=== PATIENT | female | born 1990 | race African-American/Black ===

== ENCOUNTER → 2016-09-06 | Outpatient (CLI) | payer BC, OTHER ==
[~2016-09-06] MED LIST: FERR325T PO; IBUP-232 PO; PREN29TA PO; SENN1TAB PO
== END ==
LOC: HPND 13:50
PROVIDERS: ATTEND Family Medicine
DX: O32.2XX0 Maternal care for transverse and oblique lie, not applicable or unspecified (principal)
CPT/HCPCS: 76816; 76818

== ENCOUNTER → 2016-09-27 | Outpatient (CLI) | payer BC, OTHER | LOC: HPND 14:13 | PROVIDERS: ATTEND Family Medicine | DX: O36.5930 Maternal care for other known or suspected poor fetal growth, third trimester, not applicable or unspecified (principal) | CPT/HCPCS: 76816 ==

== ENCOUNTER 2016-10-05 03:22 | Inpatient (IN) | payer BC, OTHER ==
[~2016-10-05] VITALS: Ht 165.1 cm; Wt 113.4 kg
[2016-10-05] VITALS (42 sets, daily range): BP systolic 81–138; BP diastolic 53–99; PULSE 95–126; RESP 18–20; TEMP 97.8–98.2
[~2016-10-05 03:22] MED LIST changes: -IBUP-232 PO; -SENN1TAB PO
[2016-10-05] MEDS ORDERED: LACTATED RINGER'S 1000 ML INJ 1,000 ML IV PRN (03:52)
[2016-10-05] MEDS ORDERED: LACTATED RINGER'S 1000 ML INJ 1,000 ML IV SCH (03:52)
--- NOTE | 2016-10-05 03:57 | PD ---
HPI Chief Complaint Contractions Date Seen: Oct 05, 2016 Travel History International Travel<30 Days: No Contact w/Intl Traveler<30Days: No Known Affected Area: No History of Present Illness HPI 26 year old at 40/0 weeks gestation presents to the [facility] ED with contractions that began yesterday afternoon 10/04. The patient states that she was at the [facility] to see her PCP Dr. Choi for a routine OB visit. She mentioned that she started having contractions-like pains the previous day but they were not regular or evenly spaced. Dr. Choi checked her and she was only 1 cm dilated. When she got home, the contractions began in earnest to the point that there were 4 cm apart. She denies loss of fluid, vaginal bleeding, abnormal vaginal discharge, and endorses positive movement. No chest pain or shortness of breath. No headache or blurry vision. No epigastric pain. No edema. Notably, she is GBS positive. She opted for vaginal delivery after section. Her first was a section due to distress in 2009. Para: 1 : 2 Last Menstrual Period: December 13, 2015 Miscarriage: 0 : 0 History Past Medical History Narrative Medical Obesity Anemia of Obstetric History Obstetric History prior due to non-reassuring tones Past Surgical History Narrative Surgical Family History Narrative Family History DM HTN Social History Alcohol Use: No Tobacco Use: No Substance Abuse: No Allergies-Medications (Allergen,Severity, Reaction): Coded Allergies: No Known Allergies (Verified , 09/27/16) Home Meds Reported Medications Vit-Iron Carbonyl ( Plus Iron 29-1 mg)1 Tab Tab1 Tab PO DAILY #30 TAB Ref 0 06/06/16 Discontinued Scripts Ferrous Sulfate 325 Mg [id number] Mg PO TIDAC #30 TAB Ref 0 Prov:Cesario Choi MD R2 07/05/16 Physical Exam Narrative GENERAL: Well-nourished, well-developed patient. SKIN: Warm and dry. HEAD: Normocephalic and atraumatic. EYES: No scleral icterus. No injection or drainage. ENT: No nasal drainage noted. Mucous membranes pink. Airway patent. NECK: Supple, trachea midline. No JVD. CARDIOVASCULAR: Regular rate and rhythm without murmurs, gallops, or rubs. RESPIRATORY: Breath sounds equal bilaterally. No accessory muscle use. BREASTS: Bilateral exam showed no masses , no retractions, no nipple discharge. ABDOMEN/GI: Abdomen soft, non-tender, bowel sounds present, no rebound, no guarding Gravid to 40 weeks size Fundal Height: 40 cm GENITOURINARY: External Genitalia: intact and normal in appearance Cervix: midposition Dilatation: 8 Effacement: 100% Station: -1 Presentation: vertex Membranes: intact but bulging Uterine Contractions: present FHT's: Category: 1 Baseline: 140 Reactive: yes up to 150 Variability: Moderate Decels: None EXTREMITIES: No cyanosis or edema. BACK: Nontender without obvious deformity. No CVA tenderness. NEUROLOGICAL: Awake and alert. Motor and sensory grossly within normal limits. Five out of 5 muscle strength in all muscle groups. Normal speech. Data Data Vital Signs Reviewed: Yes Orders Ob (2e) Additional Admit Info (10/05/16 03:48) Admit To Inpatient (10/05/16 ) Code Status (10/05/16 03:52) Vital Signs (Adult) .Per protocol (10/05/16 03:52) ^ Heart (10/05/16 03:52) ^ Amnioinfusion (10/05/16 03:52) Urinary Catheter Management .ONCE (10/05/16 03:52) Diet Liquid (10/05/16 Breakfast) Lactated Ringer's 1000 Ml Inj (Lr 1000 M (10/05/16 03:52) Lactated Ringer's 1000 Ml Inj (Lr 1000 M (10/05/16 03:52) Sodium Chlorid 0.9% 500 Ml Inj (Ns 500 M (10/05/16 04:00) Sodium Chlor 0.9% 1000 Ml Inj (Ns 1000 M (10/05/16 04:12) Lidocaine 1% Inj (50 Ml) (Xylocaine 1% I (10/05/16 04:00) Citric Acid-Sodium Citrate Liq (Bicitra (10/05/16 04:00) Fentanyl Inj (Fentanyl Inj) (10/05/16 04:00) Fentanyl Inj (Fentanyl Inj) (10/05/16 04:00) Penicillin G Potassium Inj (Pfizerpen-G (10/05/16 04:00) Penicillin G Potassium Inj (Pfizerpen-G (10/05/16 08:00) Complete Blood Count With Diff (10/05/16 03:52) Hold Clot (10/05/16 03:52) Abo/Rh Blood Type (10/05/16 03:52) Urinalysis - C+S If Indicated (10/05/16 03:52) Resp Oxygen Non Rebreathe Mask (10/05/16 ) ^ Epidural / Intrathecal Infus (10/05/16 03:52) Oxytocin 30 Units-500ml Premix (Pitocin (10/05/16 04:00) Lidocaine 1% Inj (50 Ml) (Xylocaine 1% I (10/05/16 04:00) Light Mineral Oil (Muri-Lube Oil) (10/05/16 04:00) Inpatient Certification (10/05/16 ) Specimen To Be Collected PRN (10/05/16 03:52) MDM Medical Record Reviewed: Yes Interpretation(s) 26-year-old at 40/0 weeks gestation presents in active labor. Plan 26-year-old at 40/0 weeks gestation Intrauterine -Active labor, 8 cm dilated, 100% effaced -Category 1 tracing, tones reassuring -GBS positive -Admit to labor and delivery Condition: Stable Eko,Giselle Alvarez MD R1 Oct 05, 2016 03:57
[2016-10-05] MEDS ORDERED: MINERAL OIL 10 ML VIAL TOPICAL PRN (04:00)
[2016-10-05] MEDS ORDERED: OXYTOCIN 30 UNITS-500ML PREMIX 500 ML IV ONE (04:00)
[2016-10-05] MEDS ORDERED: PENICILLIN G POTASSIUM INJ 5,000,000 UNITS in SODIUM CHLORIDE 0.9% INJ 100 ML IV ONE (04:00)
[2016-10-05] MEDS ORDERED: LIDOCAINE HCL 1% 50 ML VIAL INFIL PRN (04:00)
[2016-10-05] MEDS ORDERED: CITRIC ACID-SODIUM CITRATE LIQ 30 ML UDC PO SCH (04:00)
[2016-10-05] MEDS ORDERED: SODIUM CHLORID 0.9% 500 ML INJ 500 ML IV PRN (04:00)
[2016-10-05] MEDS ORDERED: LIDOCAINE HCL 1% 50 ML VIAL I-DERMAL PRN (04:00)
[2016-10-05] MEDS ORDERED: fentaNYL 2MCG-BUPIV 0.125% INJ 100 ML ONE (04:05)
[2016-10-05] MEDS ORDERED: SODIUM CHLOR 0.9% 1000 ML INJ 1,000 ML IV PRN (04:12)
[2016-10-05 04:19] LABS: AUTOMATED NEUTROPHIL # 7.1 TH/MM3 (1.8-7.7); BASOPHIL % 0.2 % (0.0-2.0); EOSINOPHIL % 0.3 % (0.0-4.0); HEMATOCRIT 34.5 % (35.0-46.0); LYMPH % 14.5 % (9.0-44.0); LYMPHOCYTE # 1.3 TH/MM3 (1.0-4.8); MEAN CELL VOLUME 74.3 FL (80.0-100.0); MEAN CORPUSCULAR HEMOGLOBIN 24.5 PG (27.0-34.0); MEAN CORPUSCULAR HGB CONC 32.9 % (32.0-36.0); MONO % 4.6 % (0.0-8.0); NEUT % 80.4 % (16.0-70.0); PLATELET COUNT 177 TH/MM3 (150-450); RED BLOOD COUNT 4.64 MIL/MM3 (4.00-5.30); RED CELL DISTRIBUTION WIDTH 15.2 % (11.6-17.2); WHITE BLOOD COUNT 8.9 TH/MM3 (4.0-11.0)
--- NOTE | 2016-10-05 04:34 | HHI.HP ---
HPI Chief Complaint Contractions Date Seen: Oct 05, 2016 Travel History International Travel<30 Days: No Contact w/Intl Traveler<30Days: No Known Affected Area: No History of Present Illness HPI 26 year old at 40/0 weeks gestation, due date 10/05/16 by 15-week ultrasound , presents to the [place] [facility] ED with contractions that began yesterday afternoon 10/04. The patient states that she was at the [facility] to see her PCP Dr. Choi for a routine OB visit. She mentioned that she started having contractions-like pains the previous day but they were not regular or evenly spaced. Dr. Choi checked her and she was only 1 cm dilated. When she got home, the contractions began in earnest to the point that there were 4 cm apart. She denies loss of fluid, vaginal bleeding, abnormal vaginal discharge, and endorses positive movement. No chest pain or shortness of breath. No headache or blurry vision. No epigastric pain. No edema. Notably, she is GBS positive. She opted for vaginal delivery after section. Her first was a section due to distress in 2009. labs were negative or within normal limits. RPR nonreactive, GC chlamydia negative, negative diabetes screen. Para: 1 : 2 Last Menstrual Period: Oct 05, 2016 Miscarriage: 0 : 0 History Past Medical History Narrative Medical Obesity Anemia of Obstetric History Obstetric History Prior in 2009 due to non-reassuring tones Past Surgical History Narrative Surgical Family History Narrative Family History DM HTN Social History Alcohol Use: No Tobacco Use: No Substance Abuse: No Allergies-Medications (Allergen,Severity, Reaction): Coded Allergies: No Known Allergies (Verified , 10/05/16) Home Meds Reported Medications Vit-Iron Carbonyl ( Plus Iron 29-1 mg)1 Tab Tab1 Tab PO DAILY #30 TAB Ref 0 06/06/16 Discontinued Scripts Ferrous Sulfate 325 Mg [id number] Mg PO TIDAC #30 TAB Ref 0 Prov:Cesario Choi MD R2 07/05/16 Physical Exam Narrative GENERAL: Well-nourished, well-developed patient. SKIN: Warm and dry. HEAD: Normocephalic and atraumatic. EYES: No scleral icterus. No injection or drainage. ENT: No nasal drainage noted. Mucous membranes pink. Airway patent. NECK: Supple, trachea midline. No JVD. CARDIOVASCULAR: Regular rate and rhythm without murmurs, gallops, or rubs. RESPIRATORY: Breath sounds equal bilaterally. No accessory muscle use. BREASTS: Bilateral exam showed no masses , no retractions, no nipple discharge. ABDOMEN/GI: Abdomen soft, non-tender, bowel sounds present, no rebound, no guarding Gravid to [-] weeks size Fundal Height: [-] GENITOURINARY: External Genitalia: intact and normal in appearance Cervix: midposition Dilatation: 8 Effacement: 100% Station: -1 Presentation: vertex Membranes: intact but bulging Uterine Contractions: present FHT's: Category: 1 Baseline: 140 Reactive: yes up to 150 Variability: Moderate Decels: None EXTREMITIES: No cyanosis or edema. BACK: Nontender without obvious deformity. No CVA tenderness. NEUROLOGICAL: Awake and alert. Motor and sensory grossly within normal limits. Five out of 5 muscle strength in all muscle groups. Normal speech. Data Data Vital Signs Reviewed: Yes Orders Ob (2e) Additional Admit Info (10/05/16 03:48) Admit To Inpatient (10/05/16 ) Code Status (10/05/16 03:52) Vital Signs (Adult) .Per protocol (10/05/16 03:52) ^ Heart (10/05/16 03:52) ^ Amnioinfusion (10/05/16 03:52) Urinary Catheter Management .ONCE (10/05/16 03:52) Diet Liquid (10/05/16 Breakfast) Lactated Ringer's 1000 Ml Inj (Lr 1000 M (10/05/16 03:52) Lactated Ringer's 1000 Ml Inj (Lr 1000 M (10/05/16 03:52) Sodium Chlorid 0.9% 500 Ml Inj (Ns 500 M (10/05/16 04:00) Sodium Chlor 0.9% 1000 Ml Inj (Ns 1000 M (10/05/16 04:12) Lidocaine 1% Inj (50 Ml) (Xylocaine 1% I (10/05/16 04:00) Citric Acid-Sodium Citrate Liq (Bicitra (10/05/16 04:00) Fentanyl Inj (Fentanyl Inj) (10/05/16 04:00) Fentanyl Inj (Fentanyl Inj) (10/05/16 04:00) Penicillin G Potassium Inj (Pfizerpen-G (10/05/16 04:00) Penicillin G Potassium Inj (Pfizerpen-G (10/05/16 08:00) Complete Blood Count With Diff (10/05/16 03:52) Hold Clot (10/05/16 03:52) Abo/Rh Blood Type (10/05/16 03:52) Urinalysis - C+S If Indicated (10/05/16 03:52) Resp Oxygen Non Rebreathe Mask (10/05/16 ) ^ Epidural / Intrathecal Infus (10/05/16 03:52) Oxytocin 30 Units-500ml Premix (Pitocin (10/05/16 04:00) Lidocaine 1% Inj (50 Ml) (Xylocaine 1% I (10/05/16 04:00) Light Mineral Oil (Muri-Lube Oil) (10/05/16 04:00) Inpatient Certification (10/05/16 ) Specimen To Be Collected PRN (10/05/16 03:52) Fentanyl 2mcg-Bupiv 0.125% Inj (Fentanyl (10/05/16 04:05) Assessment/Plan Problem List: (1) (vaginal after ) (2) Normal labor Assessment and Plan 26-year-old at 40/0 weeks gestation presents in active labor, membranes intact but bulging. GBS positive Intrauterine -Active labor, 8 cm dilated, 100% effaced -Category 1 tracing, tones reassuring -GBS positive - start penicillin prophylaxis -Admit to labor and delivery -Continuous monitoring -Anticipate vaginal delivery Discharge Planning Anticipate in 2 days following vaginal delivery EkoGiselle MD R1 Oct 05, 2016 04:34
[2016-10-05 04:37] LABS: HEMO FLAGS AUTO DIFF
[2016-10-05] MEDS ORDERED: BUPIVACAINE HCL PF 0.25% 10 ML VIAL ONE (04:41)
[2016-10-05 05:22] LABS: PLATELET ESTIMATE SMEAR LOW (NORMAL); PLATELET MORPHOLOGY NORMAL (NORMAL); SCAN/DIFF AUTO DIFF CONFIRMED
--- NOTE | 2016-10-05 05:45 | PD.LABORPN ---
Subjective Subjective 26 year old at 40 weeks gestation presented to L&D in labor. Patient with epidural at 5:00 AM, now lying in bed and comfortable. EFM reassuring, category 1 tracing. Contractions difficult to picker packer on monitor, but she feels them every 3 to 5 mins. She is GBS positive and had first dose of penicillin administered at 4 AM. No other complaints at this time. Objective Vital Signs Vital Signs Date Time Temp Pulse Resp B/P Pulse Ox O2 Delivery O2 Flow Rate FiO2 10/05/16 05:25 114 125/70 10/05/16 05:22 104 137/64 10/05/16 05:21 116 10/05/16 05:21 86/73 10/05/16 05:20 108 10/05/16 05:18 18 10/05/16 05:16 106 122/71 10/05/16 05:15 100 10/05/16 05:10 18 10/05/16 05:10 104 10/05/16 05:10 108 137/85 10/05/16 05:05 106 138/74 10/05/16 05:05 107 10/05/16 05:00 100 10/05/16 05:00 20 10/05/16 05:00 102 124/74 10/05/16 04:55 102 127/77 10/05/16 04:55 99 10/05/16 04:52 105 122/79 10/05/16 04:50 103 Objective Pelvic Exam: Cervix: Dilatation: 8 Effacement: 100 Station: -1 Presentation: vertex Membranes: intact, bulging Uterine Contractions: q3-5 mins FHT's: Category: 1 Baseline: 140's Reactive: yes Variability: moderate Decels: none Assessment/Plan Problem List: (1) (vaginal after ) Assessment and Plan 26 year old at 40 weeks gestation, currently 8/100/-1, category [address]. GBS positive, received first penicillin dose at 4 AM. - Continue expectant management, plan for vaginal delivery - Monitor EFM - Will perform amniotomy Discussed with Dr. Carlos Choi,Cesario Watson MD R2 Oct 05, 2016 05:45
[2016-10-05] MEDS ORDERED: ePHEDrine/NS 25 MG/5 ML SYR IV PRN (06:30)
[2016-10-05] MEDS ORDERED: DO NOT ADMINISTER ANTICOAGULANTS XX PRN (06:30)
[2016-10-05] MEDS ORDERED: NO SYSTEM NARCOTICS XX PRN (06:30)
[2016-10-05] MEDS ORDERED: fentaNYL 2MCG-BUPIV 0.125% 100 ML EPIDURAL SCH (06:30)
[2016-10-05 06:44] LABS: BLOOD, URINE NEG (NEG); COMMENT (UR) CULT NOT INDICATED; CULTURE IF INDICATED CULT NOT INDICATED; GLUCOSE,URINE NEG (NEG); HYALINE CAST, URINE 2 /lpf (RARE); KETONE, URINE 10 mg/dL (NEG); MUCUS URINE MOD /lpf (OCC); NITRITE,URINE NEG (NEG); SQUAMOUS EPITHELIAL CELL URINE 1 /hpf (0-5); URINE COLOR YELLOW (YELLW/STRAW)
--- NOTE | 2016-10-05 07:32 | PD.OB.DELI ---
Delivery Date: Oct 05, 2016 Anesthesia: Epidural Episiotomy: None Vaginal Delivery: Normal, Spontaneous, Presentation: Occiput posterior, Vertex Nuchal Cord: None Delayed cord clamping (45 sec): Yes : Male One Minute : 8 Five Minute : 9 Weight: 6.25 lbs Care: Suctioned, Responded to stimulation Placenta: Spontaneous delivery, Intact, 3 vessel cord Laceration: No lacerations Additional Information 26 year old G2 now P2 presented in labor, with history of X1. She delivered over an intact perineum at 7:16 AM. Delivery performed by Dr. Choi with Dr. Gonzalez attending. Delivery uncomplicated. No nuchal cord present. Apgars were 8/9. Placenta delivered spontaneously and was intact, with a 3 vessel cord. No lacerations noted. Cesario Choi MD R2 Oct 05, 2016 07:32
--- NOTE | 2016-10-05 07:44 | PD.LABORPN ---
Subjective Subjective OB attending delivery note This patient delivered as a delivery at 40 weeks laboring a viable infant weight 2835 g 8/9 over an intact perineum without complication, delivery performed by the family medicine chair who did an excellent job, placenta delivered spontaneously intact,no sign of a laceration. Mother and baby doing well Objective Vital Signs Vital Signs Date Time Temp Pulse Resp B/P Pulse Ox O2 Delivery O2 Flow Rate FiO2 10/05/16 06:55 100 10/05/16 06:50 98 10/05/16 06:45 102 10/05/16 06:38 18 10/05/16 06:25 108 10/05/16 06:25 110 105/76 10/05/16 06:21 109 102/53 10/05/16 06:20 108 10/05/16 06:19 18 10/05/16 06:16 107 104/57 10/05/16 06:15 104 10/05/16 06:10 99 109/59 10/05/16 06:10 95 10/05/16 06:07 98.0 18 10/05/16 06:05 117 10/05/16 06:05 112 110/57 10/05/16 06:00 107 118/57 10/05/16 06:00 102 10/05/16 05:59 18 10/05/16 05:55 103 123/54 10/05/16 05:55 126 10/05/16 05:50 111 81/60 10/05/16 05:50 110 10/05/16 05:45 109 120/60 10/05/16 05:45 106 10/05/16 05:40 106 10/05/16 05:40 109/92 10/05/16 05:40 109 10/05/16 05:35 103 120/57 10/05/16 05:35 109 10/05/16 05:30 114 117/99 10/05/16 05:30 101 10/05/16 05:25 114 125/70 10/05/16 05:22 104 137/64 10/05/16 05:21 116 10/05/16 05:21 86/73 10/05/16 05:20 108 10/05/16 05:18 18 10/05/16 05:16 106 122/71 10/05/16 05:15 100 10/05/16 05:10 18 10/05/16 05:10 104 10/05/16 05:10 108 137/85 10/05/16 05:05 106 138/74 10/05/16 05:05 107 10/05/16 05:00 100 10/05/16 05:00 20 10/05/16 05:00 102 124/74 10/05/16 04:55 102 127/77 10/05/16 04:55 99 10/05/16 04:52 105 122/79 10/05/16 04:50 103 Objective Assessment/Plan Problem List: (1) (vaginal after ) Sanchez Gonzalez II, MD Oct 05, 2016 07:44
[2016-10-05] MEDS ORDERED: PENICILLIN G POTASSIUM INJ 2,500,000 UNITS in SODIUM CHLORIDE 0.9% INJ 100 ML IV SCH (08:00)
[2016-10-05] MEDS ORDERED: ONDANSETRON ODT 4 MG TAB PO PRN (08:15)
[2016-10-05] MEDS ORDERED: oxyCODONE/ACETAMINOPHEN 5 MG/325 MG TAB PO PRN ×2 (08:15)
[2016-10-05] MEDS ORDERED: ACETAMINOPHEN 325 MG TAB PO PRN (08:15)
[2016-10-05] MEDS ORDERED: DOCUSATE SODIUM 50 MG/SENNA 8.6 MG TAB PO PRN (08:15)
[2016-10-05] MEDS ORDERED: ALUMINUM/MAGNESIUM/SIMETH 30 ML CUP PO PRN (08:15)
[2016-10-05] MEDS ORDERED: WITCH HAZEL 50%/GLYCERIN 12.5% 40 PAD JAR TOPICAL PRN (08:15)
[2016-10-05] MEDS ORDERED: ZOLPIDEM TARTRATE 5 MG TAB PO PRN (08:15)
[2016-10-05] MEDS ORDERED: SODIUM CHLORIDE 0.9% FLUSH 10 ML FLUSH IV FLUSH PRN (08:15)
[2016-10-05] MEDS ORDERED: BENZOCAINE 20% TOPICAL SPRAY 60 ML CAN TOPICAL PRN (08:15)
--- NOTE | 2016-10-05 08:15 | HHI.OB ---
Subjective Remarks 26 year old delivered via spontaneous . No complications during the delivery. No lacerations. Lochia is minimal. Pain is well controlled. Encouraging exclusive . Will discuss contraception options. She plans to follow with me in the clinic for post- care. Objective Vitals/I&O Vital Signs Date Time Temp Pulse Resp B/P Pulse Ox O2 Delivery O2 Flow Rate FiO2 10/05/16 07:52 18 10/05/16 07:45 104 134/67 10/05/16 07:40 97.8 18 10/05/16 07:33 102 129/65 10/05/16 06:55 100 10/05/16 06:50 98 10/05/16 06:45 102 10/05/16 06:38 18 10/05/16 06:25 108 10/05/16 06:25 110 105/76 10/05/16 06:21 109 102/53 10/05/16 06:20 108 10/05/16 06:19 18 10/05/16 06:16 107 104/57 10/05/16 06:15 104 10/05/16 06:10 99 109/59 10/05/16 06:10 95 10/05/16 06:07 98.0 18 10/05/16 06:05 117 10/05/16 06:05 112 110/57 10/05/16 06:00 107 118/57 10/05/16 06:00 102 10/05/16 05:59 18 10/05/16 05:55 103 123/54 10/05/16 05:55 126 10/05/16 05:50 111 81/60 10/05/16 05:50 110 10/05/16 05:45 109 120/60 10/05/16 05:45 106 10/05/16 05:40 106 10/05/16 05:40 109/92 10/05/16 05:40 109 10/05/16 05:35 103 120/57 10/05/16 05:35 109 10/05/16 05:30 114 117/99 10/05/16 05:30 101 10/05/16 05:25 114 125/70 10/05/16 05:22 104 137/64 10/05/16 05:21 116 10/05/16 05:21 86/73 10/05/16 05:20 108 10/05/16 05:18 18 10/05/16 05:16 106 122/71 10/05/16 05:15 100 10/05/16 05:10 18 10/05/16 05:10 104 10/05/16 05:10 108 137/85 10/05/16 05:05 106 138/74 10/05/16 05:05 107 10/05/16 05:00 100 10/05/16 05:00 20 10/05/16 05:00 102 124/74 10/05/16 04:55 102 127/77 10/05/16 04:55 99 10/05/16 04:52 105 122/79 10/05/16 04:50 103 Objective Remarks GENERAL: Well-nourished, well-developed patient. CARDIOVASCULAR: Regular rate and rhythm without murmurs, gallops, or rubs. RESPIRATORY: Breath sounds equal bilaterally. No accessory muscle use. ABDOMEN/GI: Abdomen soft, non-tender. Fundus: Firm, non-tender at umbilicus. GENITOURINARY: Light to moderate bleeding. EXTREMITIES: No cyanosis or edema, non-tender, without signs of DVT. Medications and IVs Current Medications Medications (Trade) Dose Ordered Sig/Larissa Route Start Time Stop Time Status Last Admin Lactated Ringer's 1,000 ml @ 125 mls/hr Q8H IV 10/05/16 03:52 10/05/16 06:40 Lactated Ringer's 1,000 ml @ 3,000 mls/hr Q20M PRN IV 10/05/16 03:52 10/05/16 06:38 Sodium Chloride 500 ml @ 1,000 mls/hr ONCE PRN IV 10/05/16 04:00 10/12/16 03:59 (NS 1000 ml Inj) 1,000 ml @ 100 mls/hr Q10H PRN IV 10/05/16 04:12 (fentaNYL INJ) 50 mcg Q1H PRN IV PUSH 10/05/16 04:00 Fentanyl Citrate 100 mcg 100 mcg Q1H PRN IV PUSH 10/05/16 04:00 (Pfizerpen-G Inj/ NS Inj) 100 ml @ 200 mls/hr Q4H IV 10/05/16 08:00 (Muri-Lube Oil) 10 ml UNSCH PRN TOPICAL 10/05/16 04:00 Miscellaneous Information No systemic narcotics to be given except... UNSCH PRN XX 10/05/16 06:30 10/06/16 06:29 Miscellaneous Information DO NOT ADMINISTER ANY ANTICOAGUL... UNSCH PRN XX 10/05/16 06:30 10/06/16 06:29 (fentaNYL 2MCG-BUPIV 0.125% INJ) 100 ml @ 0 mls/hr TITRATE EPIDURAL 10/05/16 06:30 (ePHEDrine/NS 25 MG/5 ML SYR) 10 mg UNSCH PRN IV 10/05/16 06:30 10/06/16 06:29 Assessment/Plan Problem List: (1) (vaginal after ) Assessment and Plan 26-year-old delivered at 40/0 weeks gestation via spontaneous - Pain management with Ibuprofen - Encourage - Discuss contraception options - Will follow with me Dr. Choi in clinic - Monitor lochia Discussed with Cesario Heath MD R2 Oct 05, 2016 08:14
[2016-10-05] MEDS ORDERED: SODIUM CHLORIDE 0.9% FLUSH 10 ML FLUSH IV FLUSH SCH (09:00)
[2016-10-05] MEDS: IBUPROFEN 600 MG TAB PO PRN ×2 (13:41→23:39)
[2016-10-05] MEDS ORDERED: DIPHTH/TETANUS/ACEL PERTUSSIS (BOOSTER) 0.5 ML VIAL/PFS IM ONE (16:00)
[2016-10-05] MEDS ORDERED: MEASLES, MUMPS, RUBELLA VACCINE 0.5 ML VIAL SQ ONE (16:00)
[2016-10-06 08:00] VITALS: BP 126/82; PULSE 78; RESP 18; TEMP 97.9
--- NOTE | 2016-10-06 08:16 | HHI.OB ---
Subjective Remarks 26 year old delivered via spontaneous . No complications during the delivery. No lacerations. Lochia is amount of a menstrual period. Pain is well controlled with ibuprofen, some lower back pain that is mild. Encouraging exclusive . Will discuss contraception options, she is interested in Nexplanon. She plans to follow with me in the clinic for post- care. ( Cesario Choi MD R2) Attestation Patient seen and examined. Agree with plan. (Bernadette Mora MD) Objective Vitals/I&O Vital Signs Date Time Temp Pulse Resp B/P Pulse Ox O2 Delivery O2 Flow Rate FiO2 10/05/16 21:00 105 18 116/64 10/05/16 21:00 98.2 10/05/16 11:15 98.1 96 18 124/67 10/05/16 08:45 96 116/97 10/05/16 08:30 98 132/79 10/05/16 08:30 18 10/05/16 08:15 101 130/77 Objective Remarks GENERAL: Well-nourished, well-developed patient. CARDIOVASCULAR: Regular rate and rhythm without murmurs, gallops, or rubs. RESPIRATORY: Breath sounds equal bilaterally. No accessory muscle use. ABDOMEN/GI: Abdomen soft, non-tender. Fundus: Firm, non-tender at umbilicus. GENITOURINARY: Light to moderate bleeding. EXTREMITIES: No cyanosis or edema, non-tender, without signs of DVT. Medications and IVs Current Medications Medications (Trade) Dose Ordered Sig/Larissa Route Start Time Stop Time Status Last Admin (NS Flush) 2 ml BID IV FLUSH 10/05/16 09:00 (NS Flush) 2 ml UNSCH PRN IV FLUSH 10/05/16 08:15 (Tylenol) 650 mg Q4H PRN PO 10/05/16 08:15 (Motrin) 600 mg Q6H PRN PO 10/05/16 08:15 10/05/16 23:39 (Percocet 5-325 Mg) 1 tab Q4H PRN PO 10/05/16 08:15 (Percocet 5-325 Mg) 2 tab Q4H PRN PO 10/05/16 08:15 (Americaine 20% Top Spr) 1 spray Q4H PRN TOPICAL 10/05/16 08:15 (Tucks Pads) 1 applic QID PRN TOPICAL 10/05/16 08:15 (Tessa-Colace) 2 tab Q12H PRN PO 10/05/16 08:15 (Ambien) 5 mg HS PRN PO 10/05/16 08:15 (Mag-Al Plus Susp Liq) 15 ml Q8H PRN PO 10/05/16 08:15 (Zofran Odt) 4 mg Q6H PRN PO 10/05/16 08:15 (Cesario Choi MD R2) Assessment/Plan Problem List: (1) (vaginal after ) Assessment and Plan 26-year-old delivered at 40/0 weeks gestation via spontaneous - Pain management with Ibuprofen - Encourage - Discuss contraception options, she is interested in Nexplanon - Monitor lochia - Will follow with me Dr. Choi in clinic - Plan for discharge tomorrow Discussed with Dr. Mora (Cesario Choi MD R2) Cesario Choi MD R2 Oct 06, 2016 08:16 Bernadette Mora MD Oct 06, 2016 10:24
[2016-10-06] MEDS: IBUPROFEN 600 MG TAB PO PRN ×2 (09:15→16:55)
[2016-10-07] MEDS: IBUPROFEN 600 MG TAB PO PRN ×2 (01:07→08:57)
--- NOTE | 2016-10-07 07:27 | HHI.OB ---
Subjective Post Day: 2 Remarks day # 2. AFVSS overnight. Pain controlled. Decreased lochia. Denies dysuria. No breast tenderness. She is feeding the baby via breast. Appetite good. No nausea or vomiting. Positive flatus. Negative bowel movement. Ambulating well. Denies calf pain, shortness of breath, or cough. Otherwise, she is doing well this morning and has no other complaints. Wishing to go home today (Eric Ang MD R2) Objective Vitals/I&O Vital Signs Date Time Temp Pulse Resp B/P Pulse Ox O2 Delivery O2 Flow Rate FiO2 10/06/16 08:00 78 18 126/82 10/06/16 08:00 97.9 Objective Remarks GENERAL: Well-nourished, well-developed patient. CARDIOVASCULAR: Regular rate and rhythm without murmurs, gallops, or rubs. RESPIRATORY: Breath sounds equal bilaterally. No accessory muscle use. ABDOMEN/GI: Abdomen soft, non-tender. Fundus: Firm, non-tender at umbilicus. GENITOURINARY: Light to moderate bleeding. EXTREMITIES: No cyanosis or edema, non-tender, without signs of DVT. Medications and IVs Current Medications Medications (Trade) Dose Ordered Sig/Larissa Route Start Time Stop Time Status Last Admin (NS Flush) 2 ml BID IV FLUSH 10/05/16 09:00 (NS Flush) 2 ml UNSCH PRN IV FLUSH 10/05/16 08:15 (Tylenol) 650 mg Q4H PRN PO 10/05/16 08:15 (Motrin) 600 mg Q6H PRN PO 10/05/16 08:15 10/07/16 01:07 (Percocet 5-325 Mg) 1 tab Q4H PRN PO 10/05/16 08:15 (Percocet 5-325 Mg) 2 tab Q4H PRN PO 10/05/16 08:15 (Americaine 20% Top Spr) 1 spray Q4H PRN TOPICAL 10/05/16 08:15 (Tucks Pads) 1 applic QID PRN TOPICAL 10/05/16 08:15 (Tessa-Colace) 2 tab Q12H PRN PO 10/05/16 08:15 (Ambien) 5 mg HS PRN PO 10/05/16 08:15 (Mag-Al Plus Susp Liq) 15 ml Q8H PRN PO 10/05/16 08:15 (Zofran Odt) 4 mg Q6H PRN PO 10/05/16 08:15 (Eric Ang MD R2) Assessment/Plan Problem List: (1) (vaginal after ) (2) care following vaginal delivery Assessment and Plan 26-year-old delivered at 40/0 weeks gestation via spontaneous - Pain management with Ibuprofen - Encourage - Discuss contraception options, she is interested in Nexplanon - Monitor lochia - Will follow with me Dr. Choi in clinic - Plan for discharge today Discussed with Dr. Osborn (Eric Ang MD R2) Attestation Agree with discharge plans (Esthela Osborn MD) Eric Ang MD R2 Oct 07, 2016 07:26 Esthela Osborn MD Oct 07, 2016 08:18
[2016-10-07] MEDS ORDERED: IBUP-232 PO (07:52)
[2016-10-07] MEDS ORDERED: SENN1TAB PO (07:52)
--- NOTE | 2016-10-07 07:53 | HHI.DCPOC ---
Discharge Care Plan Diagnosis: (1) care following vaginal delivery Report Symptoms to Your Doctor -Temperate above 100.5 degrees -Redness, of incision or excessive or foul smelling drainage -Unusual pain or calf pain -Increased vaginal bleeding -Painful or difficulty urinating -Feelings of extreme sadness or anxiety after 2 weeks Goals to Promote Your Health * To prevent worsening of your condition and complications * To maintain your health at the optimal level Pelvic Rest x 6 weeks Follow up with OB in 6 weeks Directions to Meet Your Goals Take your medications as prescribed Follow your dietary instruction Follow activity as directed Ensure plenty of rest for recovery Drink fluids for hydration Keep your appointments as scheduled Take your immunizations and boosters as scheduled If your symptoms worsen call your PCP, if no PCP go to Urgent Care Center or Emergency Room Smoking is Dangerous to Your Health. Avoid second hand smoke Call the 24-hour crisis hotline for domestic abuse at Eric Ang MD R2 Oct 07, 2016 07:53
[2016-10-07 08:00] VITALS: BP 120/82; PULSE 82; RESP 18; TEMP 98.8
== END 2016-10-07 11:13 | disposition home or self-care (01) | DRG 775 ==
LOC: HOBED 03:22 → H2EA 03:49 → H1EA 10:11
PROVIDERS: ADMIT Obstetrics & Gynecology Maternal & Fetal Medicine; ATTEND Obstetrics & Gynecology Maternal & Fetal Medicine
PROC: 10E0XZZ Delivery of Products of Conception, External Approach (ICD-10-PCS; principal; 2016-10-05)
PROC: 3E0R3CZ (ICD-10-PCS; 2016-10-05)
PROC: 00HU33Z Insertion of Infusion Device into Spinal Canal, Percutaneous Approach (ICD-10-PCS; 2016-10-05)
DX: O77.9 Labor and delivery complicated by fetal stress, unspecified (principal); O99.824 Streptococcus B carrier state complicating childbirth; Z37.0 Single live birth; O34.219 Maternal care for unspecified type scar from previous cesarean delivery; Z3A.40 40 weeks gestation of pregnancy
CPT/HCPCS: 59025; 81001; 85025; 86900; 86901; 90715; 99285; J2540; J7120

== ENCOUNTER → 2017-06-18 | Outpatient (CLI) | payer BC, OTHER ==
[~2017-06-18] MED LIST changes: -FERR325T PO
== END ==
LOC: HPND 13:43
PROVIDERS: ATTEND Family Medicine
DX: Z36.3 Encounter for antenatal screening for malformations (principal); O09.32 Supervision of pregnancy with insufficient antenatal care, second trimester
CPT/HCPCS: 76805

== ENCOUNTER → 2017-07-19 | Outpatient (CLI) | payer BC, OTHER ==
[~2017-07-19] MED LIST changes: +FERR325T18 PO
== END ==
LOC: HPND 09:25
PROVIDERS: ATTEND Family Medicine
DX: Z36.2 Encounter for other antenatal screening follow-up (principal)
CPT/HCPCS: 76816

== ENCOUNTER 2017-10-22 08:05 | Inpatient (IN) | payer BC, MEDICAID ==
[2017-10-22] VITALS (52 sets, daily range): BP systolic 99–153; BP diastolic 45–103; PULSE 85–115; RESP 17–20; TEMP 97.9–99.2
[~2017-10-22] VITALS: Ht 162.6 cm; Wt 117.0 kg
[2017-10-22] MEDS ORDERED: LACTATED RINGER'S 1000 ML INJ 1,000 ML IV PRN (08:42)
[2017-10-22] MEDS ORDERED: ONDANSETRON HCL 4 MG/2 ML VIAL IV PUSH PRN (08:45)
[2017-10-22] MEDS ORDERED: MINERAL OIL 10 ML VIAL TOPICAL PRN (08:45)
[2017-10-22] MEDS ORDERED: SODIUM CHLORID 0.9% 500 ML INJ 500 ML IV PRN (08:45)
[2017-10-22] MEDS ORDERED: CITRIC ACID-SODIUM CITRATE LIQ 30 ML UDC PO SCH (08:45)
[2017-10-22] MEDS ORDERED: LIDOCAINE HCL 1% 50 ML VIAL INFIL PRN (08:45)
[2017-10-22] MEDS ORDERED: LIDOCAINE HCL 1% 50 ML VIAL I-DERMAL PRN (08:45)
[2017-10-22] MEDS ORDERED: OXYTOCIN 30 UNITS-500ML PREMIX 500 ML IV ONE (08:45)
[2017-10-22] MEDS ORDERED: PENICILLIN G POTASSIUM INJ 5,000,000 UNITS in SODIUM CHLORIDE 0.9% INJ 100 ML IV ONE (09:00)
[2017-10-22] MEDS ORDERED: SODIUM CHLOR 0.9% 1000 ML INJ 1,000 ML IV PRN (09:02)
[2017-10-22 09:29] LABS: AUTOMATED NEUTROPHIL # 3.3 TH/MM3 (1.8-7.7); BASOPHIL % 0.4 % (0.0-2.0); EOSINOPHIL # 0.1 TH/MM3 (0-0.4); EOSINOPHIL % 0.9 % (0.0-4.0); LYMPH % 32.8 % (9.0-44.0); LYMPHOCYTE # 1.9 TH/MM3 (1.0-4.8); MEAN CELL VOLUME 75.2 FL (80.0-100.0); MEAN CORPUSCULAR HEMOGLOBIN 24.3 PG (27.0-34.0); MEAN CORPUSCULAR HGB CONC 32.3 % (32.0-36.0); MEAN PLATELET VOLUME 9.6 FL (7.0-11.0); MONO % 8.2 % (0.0-8.0); MONOCYTE # 0.5 TH/MM3 (0-0.9); NEUT % 57.7 % (16.0-70.0); PLATELET COUNT 165 TH/MM3 (150-450); RED BLOOD COUNT 4.51 MIL/MM3 (4.00-5.30); WHITE BLOOD COUNT 5.8 TH/MM3 (4.0-11.0)
--- NOTE | 2017-10-22 09:38 | HHI.HP ---
HPI Chief Complaint induction of labor Date Seen: Oct 22, 2017 Time Seen: 08:45 Travel History International Travel<30 Days: No Contact w/Intl Traveler<30Days: No Known Affected Area: No History of Present Illness HPI Ms Ty is a 27YO at 39/6 weeks gestation (from [facility] [place]) who is followed by Dr Cesario Choi and presents for induction of labor today with Dr Kim. OB diagnostic US performed this morning shows oligohydramnios with ADELINE 3.0. Ms Ty has had one C/S for failure to progress 7 years ago and one a year ago. Pt had late PNC. Pt has had no problems during except for Iron deficiency anemia treated with FeSO4 BID and a current yeast infection being treated with OTC Monostat. Pt also takes PNV. Pt is GBS+ on testing and will get PCN G as she has NKA. Pt denies HTN in and GDM, also denies pain, cramping, loss of fluid, vaginal discharge or bleeding. Weeks Gestation: 39 Para: 2 : 3 Miscarriage: 0 : 0 History Past Medical History Narrative Medical Iron deficiency anemia Obstetric History Obstetric History C/S 7 years ago for failure to progress 1 year ago denies STIs Past Surgical History Narrative Surgical One C/S 7 years ago Family History Narrative Family History Mother's side of family has HTN and DM Social History Alcohol Use: No Tobacco Use: No Substance Abuse: No Allergies-Medications (Allergen,Severity, Reaction): Coded Allergies: No Known Allergies (Verified Allergy, Unknown, 10/22/17) Home Meds Active Scripts Ferrous Sulfate (Ferrous Sulfate) 325 Mg (65 Mg Iron) Tablet, 325 MG PO TIDPC for Nutritional Supplement, #90 TAB 0 Refills Prov:Cesario Choi MD R3 07/20/17 Vit-Iron Carbonyl ( Plus Iron 29-1 mg) 1 Tab Tab, 1 TAB PO DAILY for Nutritional Supplement, #30 TAB 0 Refills Prov:Cesario Choi MD R3 06/24/17 Review of Systems General / Constitutional: Weight Gain Eyes: No: Visual changes, Pain HENT: No: Headaches, Lightheadedness Cardiovascular: No: Chest Pain or Discomfort, Palpitations Respiratory: No: Cough, Short of Breath Gastrointestinal: No: Nausea, Vomiting, Diarrhea, Abdominal Pain, Constipation Genitourinary: No: Dysuria, Pelvic Pain, Discharge, Vaginal Bleeding Musculoskeletal: No: Cramping, Edema, Pain Skin: No Rash Neurologic: No: Weakness, Dizziness Physical Exam Vital Signs Date Time Temp Pulse Resp B/P (MAP) Pulse Ox O2 Delivery O2 Flow Rate FiO2 10/22/17 08:56 99.2 10/22/17 08:55 18 10/22/17 08:51 92 153/103 (120) Narrative GENERAL: Well-nourished, well-developed patient lying in bed in NAD. SKIN: Warm and dry. No rashes or lesions. HEAD: Normocephalic and atraumatic. EYES: No scleral icterus. No injection or drainage. EOMI. ENT: No nasal drainage noted. Mucous membranes pink. Airway patent. NECK: Supple, trachea midline. No JVD. CARDIOVASCULAR: Regular rate and rhythm without murmurs, gallops, or rubs. RESPIRATORY: Breath sounds equal bilaterally. No accessory muscle use. ABDOMEN/GI: Abdomen soft, non-tender, bowel sounds present, no rebound, no guarding Gravid to 39 weeks size Fundal Height: 39 GENITOURINARY: External Genitalia: intact and normal in appearance Cervix: open Dilatation: 2 Effacement: 60 Station: -2 Presentation: vtx Membranes: AROM by Dr Kim 0905AM 10/22/17 with clear fluid Uterine Contractions: absent FHT's: Category: 1 Baseline: 145 Reactive: yes Variability: moderate Decels: absent EXTREMITIES: No cyanosis or edema. BACK: Nontender without obvious deformity. No CVA tenderness. NEUROLOGICAL: Awake and alert. Motor and sensory grossly within normal limits. Five out of 5 muscle strength in all muscle groups. Normal speech. Caprini VTE Risk Assessment Caprini VTE Risk Assessment: No/Low Risk (score <= 1) Caprini Risk Assessment Model Point Value = 1 Point Value = 2 Point Value = 3 Point Value = 5 Age 41-60 Minor surgery BMI > 25 kg/m2 Swollen legs Varicose veins or History of unexplained or recurrent spontaneous Oral contraceptives or hormone replacement Sepsis (< 1 month) Serious lung disease, including pneumonia (< 1 month) Abnormal pulmonary function Acute myocardial infarction Congestive heart failure (< 1 month) History of inflammatory bowel disease Medical patient at bed rest Age 61-74 Arthroscopic surgery Major open surgery (> 45 min) Laparoscopic surgery (> 45 min) Malignancy Confined to bed (> 72 hours) Immobilizing plaster cast Central venous access Age >= 75 History of VTE Family history of VTE Factor V Leiden Prothrombin [id number] Lupus anticoagulant Anticardiolipin antibodies Elevated serum homocysteine Heparin-induced thrombocytopenia Other congenital or acquired thrombophilia Stroke (< 1 month) Elective arthroplasty Hip, pelvis, or leg fracture Acute spinal cord injury (< 1 month) Prophylaxis Regimen Total Risk Factor Score Risk Level Prophylaxis Regimen 0-1 Low Early ambulation 2 Moderate Order ONE of the following: *Sequential Compression Device (SCD) *Heparin 5000 units SQ BID 3-4 Higher Order ONE of the following medications: *Heparin 5000 units SQ TID *Enoxaparin/Lovenox 40 mg SQ daily (WT < 150 kg, CrCl > 30 mL/min) *Enoxaparin/Lovenox 30 mg SQ daily (WT < 150 kg, CrCl > 10-29 mL/min) *Enoxaparin/Lovenox 30 mg SQ BID (WT < 150 kg, CrCl > 30 mL/min) AND/OR *Sequential Compression Device (SCD) 5 or more Highest Order ONE of the following medications: *Heparin 5000 units SQ TID (Preferred with Epidurals) *Enoxaparin/Lovenox 40 mg SQ daily (WT < 150 kg, CrCl > 30 mL/min) *Enoxaparin/Lovenox 30 mg SQ daily (WT < 150 kg, CrCl > 10-29 mL/min) *Enoxaparin/Lovenox 30 mg SQ BID (WT < 150 kg, CrCl > 30 mL/min) AND *Sequential Compression Device (SCD) Data Data Vital Signs Reviewed: Yes Orders Orders Us Ob Repeat/Fu(Growth) (10/22/17 ) Admit To Inpatient (10/22/17 ) Code Status (10/22/17 08:42) Vital Signs (Adult) .Per protocol (10/22/17 08:42) Activity Oob Ad Ruth (10/22/17 08:42) Heart (10/22/17 08:42) Amnioinfusion (10/22/17 08:42) Urinary Catheter Management .ONCE (10/22/17 08:42) Diet Liquid (10/22/17 Breakfast) Lactated Ringer's 1000 Ml Inj (Lr 1000 M (10/22/17 08:42) Lactated Ringer's 1000 Ml Inj (Lr 1000 M (10/22/17 08:42) Sodium Chlorid 0.9% 500 Ml Inj (Ns 500 M (10/22/17 08:45) Sodium Chlor 0.9% 1000 Ml Inj (Ns 1000 M (10/22/17 09:02) Lidocaine 1% Inj (50 Ml) (Xylocaine 1% I (10/22/17 08:45) Citric Acid-Sodium Citrate Liq (Bicitra (10/22/17 08:45) Ondansetron Inj (Zofran Inj) (10/22/17 08:45) Fentanyl Inj (Fentanyl Inj) (10/22/17 08:45) Fentanyl Inj (Fentanyl Inj) (10/22/17 08:45) Complete Blood Count With Diff (10/22/17 08:42) Hold Clot (10/22/17 08:42) Abo/Rh Blood Type (10/22/17 08:42) Urinalysis - C+S If Indicated (10/22/17 08:42) Drug Screen, Random Urine (10/22/17 08:42) Ob/Psych Drug Screen, Urine (10/22/17 08:42) Resp Oxygen Non Rebreathe Mask (10/22/17 ) ^ Epidural / Intrathecal Infus (10/22/17 08:42) Oxytocin 30 Units-500ml Premix (Pitocin (10/22/17 08:45) Lidocaine 1% Inj (50 Ml) (Xylocaine 1% I (10/22/17 08:45) Light Mineral Oil (Muri-Lube Oil) (10/22/17 08:45) ^ Non Stress Test (10/22/17 08:42) Response To Medication .Post New Med Administration, Reaction (10/22/17 08:42) ^ Discontinue Medication (10/22/17 08:42) Inpatient Certification (10/22/17 ) Specimen To Be Collected PRN (10/22/17 08:42) Specimen To Be Collected PRN (10/22/17 08:42) Penicillin G Potassium Inj (Pfizerpen-G (10/22/17 09:00) Penicillin G Potassium Inj (Pfizerpen-G (10/22/17 13:00) Group B Strep: Positive Assessment/Plan Assessment and Plan 27YO at 39/[address] Cesario Choi and presents for induction of labor and with Dr Kim. Oligohydramnios on OB diagnostic US 10/22 w/ADELINE 3.0. On exam pt is 2/60/-2 with no ctx. Pt is GBS+ and PCN G is ordered. NKA. AROM 0905AM with clear fluid. FHT w/baseline 145, reactive, moderate, no decels 1. IUP -- induction w/ -Tylenol PRN -Liquid diet -Monitor and toco -PCN G IV 5M units -PCN G IV 2.5M units x4 hrs -If pitocin used, 2.5% risk intrauterine rupture -FHT reassuring w/BL 145, reactive, moderate, absent decels 2. Oligohydramnios in 3rd trimester -ADELINE 3.0 -BPP / -Est wt 3286g, 34% -Placenta anterior/no placenta previa per OB US 10/22 3. Iron deficiency anemia -PNV -FeSO4 325mg PO BID Pt seens and dw Vickie Kim and Tabatha Addison Discharge Planning Plan 2-3 days Cristopher Francois MD R1 Oct 22, 2017 09:37
[2017-10-22] MEDS: LACTATED RINGER'S 1000 ML INJ 1,000 ML IV SCH ×2 (09:42→19:12)
[2017-10-22 09:48] LABS: BACTERIA, URINE MANY /hpf; BILIRUBIN, URINE NEG (NEG); BLOOD, URINE NEG (NEG); GLUCOSE,URINE NEG (NEG); KETONE, URINE 40 mg/dL (NEG); MUCUS URINE FEW /lpf (OCC); NITRITE,URINE NEG (NEG); SQUAMOUS EPITHELIAL CELL URINE 22 /hpf (0-5); TRANSITIONAL EPI CELLS, URINE <1 /hpf; URINE COLOR YELLOW (YELLW/STRAW); URINE LEUKOCYTE ESTERASE LARGE (NEG)
[2017-10-22] MEDS ORDERED: OXYTOCIN 30 UNITS-500ML PREMIX 500 ML IV PRN (13:15)
--- NOTE | 2017-10-22 13:17 | PD.LABORPN ---
Subjective Subjective patient feeling intermittent contractions Objective Vital Signs Vital Signs Date Time Temp Pulse Resp B/P (MAP) Pulse Ox O2 Delivery O2 Flow Rate FiO2 10/22/17 09:13 88 144/98 (113) 10/22/17 08:56 99.2 10/22/17 08:55 18 10/22/17 08:51 92 153/103 (120) Objective GENITOURINARY: External Genitalia: intact and normal in appearance Cervix: open Dilatation: 2 Effacement: 60 Station: -2 Presentation: vtx Membranes: AROM by Dr Kim 0905AM 10/22/17 with clear fluid Uterine Contractions: absent FHT's: Category: 1 Baseline: 145 Reactive: 160s Variability: moderate Decels: absent Weeks Gestation: 39 Assessment/Plan Assessment and Plan 27YO at 39/[address] Cesario Choi. Admitted for induction of labor and . Oligohydramnios on OB diagnostic US 10/22 w/ADELINE 3.0. Cervix 2/60/-2 with no ctx. Pt is GBS+ and PCN G administered, start time 0900. AROM 0905AM with clear fluid. Cat 1 tracining No CTX 1. IUP -- induction w/ TOLAC -Tylenol PRN -Liquid diet -Monitor and toco -PCN G IV 5M units -PCN G IV 2.5M units q4 hrs -Counseled on risks of uterine rupture with induction, pt expresses understanding -FHT reassuring -Initiate Pitocin at 07/16/29 rate at this time, will monitor closely, max rate 5miu/min for now, discussed with RN 2. Oligohydramnios in 3rd trimester -ADELINE 3.0 -BPP 12/21 -Est wt 3286g, 34%ile -Placenta anterior/no placenta previa per OB US 10/22 3. Iron deficiency anemia -PNV -Continue FeSO4 325mg PO BID after delivery SDW Dr. Julio Addison,Anisha Cisneros MD R2 Oct 22, 2017 13:16
[2017-10-22] MEDS: FERROUS SULFATE 325 MG (65 MG ELEMENTAL IRON) TAB PO SCH ×2 (13:22→18:30)
[2017-10-22] MEDS: PENICILLIN G POTASSIUM INJ 2,500,000 UNITS in SODIUM CHLORIDE 0.9% INJ 100 ML IV SCH ×2 (13:52→19:12)
[2017-10-22] MEDS ORDERED: DIPHTH/TETANUS/ACEL PERTUSSIS (BOOSTER) 0.5 ML VIAL/PFS IM ONE (16:00)
[2017-10-22] MEDS ORDERED: MEASLES, MUMPS, RUBELLA VACCINE 0.5 ML VIAL SQ ONE (16:00)
--- NOTE | 2017-10-22 16:47 | PD.LABORPN ---
Subjective Subjective Patient resting comfortably in bed, although she is feeling her contractions more. She is having contractions about every 3 minutes. Counseled on IUPC placement. Objective Vital Signs Vital Signs Date Time Temp Pulse Resp B/P (MAP) Pulse Ox O2 Delivery O2 Flow Rate FiO2 10/22/17 16:15 97.9 17 10/22/17 16:01 93 128/81 (97) 10/22/17 15:31 95 131/96 (108) 10/22/17 15:01 100 132/79 (96) 10/22/17 14:31 100 141/88 (105) 10/22/17 14:01 91 133/71 (91) 10/22/17 13:31 94 142/98 (113) 10/22/17 13:29 98.2 10/22/17 09:13 88 144/98 (113) 10/22/17 08:56 99.2 10/22/17 08:55 18 10/22/17 08:51 92 153/103 (120) Objective Pelvic Exam: Dilatation: 4 cm Effacement: 70% Station: -1 Presentation: vertex Membranes: AROM Uterine Contractions: q3mins FHT's: Category: 1 Baseline: 130's Reactive: yes Variability: moderate Decels: none Weeks Gestation: 39 Assessment/Plan Assessment and Plan 27YO at 39/6 weeks. Admitted for induction of labor and TOLAC, her last delivery was a successful . Oligohydramnios on OB diagnostic US 10/22 w/ADELINE 3.0, BPP was 6/8. Cervix 4/70/-1 with contractions q3hrs. Pt is GBS+ and PCN G administered, start time 0900. AROM 0905AM with clear fluid. Cat 1 tracing 1. IUP -- induction w/ TOLAC - Continue monitoring - PCN G IV 5M units x1, then PCN G IV 2.5M units q4 hrs, started 0900. - FHT reassuring - Pitocin at 07/16/29 rate, currently at 6 milliunits 2. Oligohydramnios in 3rd trimester - ADELINE 3.0 - BPP 6/8 - Est wt 3286g, 34%ile - Placenta anterior/no placenta previa per OB US 10/22 3. Iron deficiency anemia - PNV - Continue FeSO4 325mg PO BID after delivery 4. Inadequate tracing of contractions. - IUPC placed at [address] Choi, need to appropriately titrate oxytocin. Cesario Choi MD R3 Oct 22, 2017 16:47
[2017-10-22] MEDS ORDERED: fentaNYL 2MCG-BUPIV 0.125% INJ 100 ML ONE (18:20)
[2017-10-22] MEDS ORDERED: ePHEDrine/NS 25 MG/5 ML SYRINGE ONE (18:20)
--- NOTE | 2017-10-22 18:45 | PD.LABORPN ---
Subjective Subjective Patient in bed, able to feel contractions. Eager for epidural. Applied scalp electrodes for better tracings as they are currently intermittent on the monitor. Objective Vital Signs Vital Signs Date Time Temp Pulse Resp B/P (MAP) Pulse Ox O2 Delivery O2 Flow Rate FiO2 10/22/17 18:00 86 139/98 (112) 10/22/17 17:36 92 118/56 (76) 10/22/17 17:01 89 144/74 (97) 10/22/17 16:39 85 143/88 (106) 10/22/17 16:15 97.9 17 10/22/17 16:01 93 128/81 (97) 10/22/17 15:31 95 131/96 (108) 10/22/17 15:01 100 132/79 (96) 10/22/17 14:31 100 141/88 (105) 10/22/17 14:01 91 133/71 (91) 10/22/17 13:31 94 142/98 (113) 10/22/17 13:29 98.2 Objective Pelvic Exam: Dilatation: 6 cm Effacement: 80% Station: 0 Presentation: vertex Membranes: ruptured Uterine Contractions: q2mins FHT's: Category: 1 Baseline: 150's Reactive: yes Variability: moderate Decels: early decels Weeks Gestation: 39 Assessment/Plan Assessment and Plan 27YO at 39/6 weeks. Admitted for induction of labor and TOLAC, her last delivery was a successful . Oligohydramnios on OB diagnostic US 10/22 w/ADELINE 3.0, BPP was 6/8. GBS positive. AROM 0905 with clear fluid. 1. IUP -- induction w/ TOLAC, indicated for oligohydramnios. - Continue monitoring, scalp electrodes applied by Dr. Choi at 1835. - Early decels, continue to monitor, repositioning as needed. - Continue Pitocin, monitor for tachysystole. - Plan for epidural soon for increasing pain, regular contractions. 2. Oligohydramnios in 3rd trimester - ADELINE 3.0 - BPP 6/8 - Est wt 3286g, 34%ile - Placenta anterior/no placenta previa per OB US 10/22 3. Iron deficiency anemia - PNV - Continue FeSO4 325mg PO BID after delivery 4. GBS positive - Continue penicillin G, started 0900 just before rupture. 5. Inadequate tracings: - IUPC placed earlier, scalp electrodes placed [address] Choi. Cesario Choi MD R3 Oct 22, 2017 18:45
[2017-10-22] MEDS ORDERED: ePHEDrine/NS 25 MG/5 ML SYRINGE IV PUSH PRN (19:45)
[2017-10-22] MEDS ORDERED: NO SYSTEM NARCOTICS PRN (19:45)
[2017-10-22] MEDS ORDERED: fentaNYL 2MCG-BUPIV 0.125% 100 ML EPIDURAL SCH (19:45)
[2017-10-22] MEDS ORDERED: DO NOT ADMINISTER ANTICOAGULANTS PRN (19:45)
--- NOTE | 2017-10-22 20:40 | PD.LABORPN ---
Subjective Subjective Lying in bed, epidural in place, still feeling her contractions. Feeling more of a sensation to push. Currently 9 cm dilated and progressing well. Objective Vital Signs Vital Signs Date Time Temp Pulse Resp B/P (MAP) Pulse Ox O2 Delivery O2 Flow Rate FiO2 10/22/17 20:16 97 122/77 (92) 10/22/17 20:10 102 10/22/17 20:04 18 10/22/17 20:01 102 127/71 (89) 10/22/17 19:55 106 10/22/17 19:46 118/79 (92) 10/22/17 19:40 104 10/22/17 19:31 118/67 (84) 10/22/17 19:30 98.4 18 10/22/17 19:25 114 10/22/17 19:16 125/77 (93) 10/22/17 19:14 18 10/22/17 19:13 18 10/22/17 19:11 101 10/22/17 19:11 132/83 (99) 10/22/17 19:10 99 10/22/17 19:06 134/82 (99) 10/22/17 19:01 134/87 (103) 10/22/17 19:00 18 10/22/17 18:56 122/97 (105) 10/22/17 18:56 92 10/22/17 18:51 145/67 (93) 10/22/17 18:00 86 139/98 (112) 10/22/17 17:36 92 118/56 (76) 10/22/17 17:01 89 144/74 (97) 10/22/17 16:39 85 143/88 (106) 10/22/17 16:15 97.9 17 10/22/17 16:01 93 128/81 (97) 10/22/17 15:31 95 131/96 (108) 10/22/17 15:01 100 132/79 (96) 10/22/17 14:31 100 141/88 (105) 10/22/17 14:01 91 133/71 (91) 10/22/17 13:31 94 142/98 (113) 10/22/17 13:29 98.2 Objective Pelvic Exam: Dilatation: 9 cm Effacement: 100% Station: 0 Presentation: vertex Membranes: ruptured Uterine Contractions: q2-3 mins FHT's: Category: 1 Baseline: 130's Reactive: yes Variability: moderate Decels: early decels Weeks Gestation: 39 Assessment/Plan Assessment and Plan 27YO at 39/6 weeks. Admitted for induction of labor and TOLAC, her last delivery was a successful . Oligohydramnios on OB diagnostic US 10/22 w/ADELINE 3.0, BPP was 6/8. GBS positive. AROM 0905 with clear fluid. 1. IUP -- induction w/ TOLAC, indicated for oligohydramnios. - Continue monitoring, scalp electrodes in place, IUPC in place, epidural in place. - Early decels, continue to monitor, repositioning as needed. - Continue Pitocin, currently 5 milliunits/min 2. Oligohydramnios in 3rd trimester - ADELINE 3.0 - BPP 6/8 - Est wt 3286g, 34%ile - Placenta anterior/no placenta previa per OB US 10/22 3. Iron deficiency anemia - PNV - Continue FeSO4 325mg PO BID after delivery 4. GBS positive - Continue penicillin G, started 0900 just before rupture. Cesario Choi MD R3 Oct 22, 2017 20:40
[2017-10-22] MEDS ORDERED: WITCH HAZEL 50%/GLYCERIN 12.5% 40 PAD JAR TOPICAL PRN (22:00)
[2017-10-22] MEDS ORDERED: oxyCODONE/ACETAMINOPHEN 5 MG/325 MG TAB PO PRN (22:00)
[2017-10-22] MEDS ORDERED: SODIUM CHLORIDE 0.9% FLUSH 10 ML FLUSH IV FLUSH SCH (22:00)
[2017-10-22] MEDS ORDERED: ALUMINUM/MAGNESIUM/SIMETH 30 ML CUP PO PRN (22:00)
[2017-10-22] MEDS ORDERED: ONDANSETRON ODT 4 MG TAB PO PRN (22:00)
[2017-10-22] MEDS ORDERED: OXYTOCIN 30 UNITS-500ML PREMIX 500 ML IV SCH (22:00)
[2017-10-22] MEDS ORDERED: BENZOCAINE 20% TOPICAL SPRAY 60 ML CAN TOPICAL PRN (22:00)
[2017-10-22] MEDS ORDERED: ZOLPIDEM TARTRATE 5 MG TAB PO PRN (22:00)
[2017-10-22] MEDS ORDERED: ACETAMINOPHEN 325 MG TAB PO PRN (22:00)
[2017-10-22] MEDS ORDERED: SODIUM CHLORIDE 0.9% FLUSH 10 ML FLUSH IV FLUSH PRN (22:00)
[2017-10-22] MEDS ORDERED: DOCUSATE SODIUM 50 MG/SENNA 8.6 MG TAB PO PRN (22:00)
--- NOTE | 2017-10-22 22:15 | PD.OB.DELI ---
Weeks gestation: 39 Pt started active labor?: Yes Medical induction of labor?: Yes Medical induction start date: Oct 22, 2017 Medical induction start time: 13:23 Artificial rupture of membrane: Yes Artificial ROM date: Oct 22, 2017 Artifical ROM time: 09:05 Anesthesia: Epidural Episiotomy: None Vaginal Delivery: Vacuum, Presentation: Occiput anterior, Vertex Nuchal Cord: x1 (nuchal cord around neck (not tight) and around arm (not tight ) ) Delayed cord clamping (45 sec): No : Male Delivery date: Oct 22, 2017 Delivery time: 21:39 One Minute : 8 Five Minute : 8 Weight: 3880 Placenta: Spontaneous delivery, Intact, 3 vessel cord Laceration: No lacerations Additional Information 27 y/o now experienced ( two deliveries ago, last delivery was ) over intact perineum, on 10/22/17 at 2139. The infant's head was delivered via vacuum suction, with one pop-off, done for increased early decels during pushing. Amniotic fluid was clear. There was a cord (loose) around the neck X1 that was reduced and around the arm (loose) X1 that was reduced. The 's body was then delivered in the usual manner without difficulty. The cord was clamped and cut. The was handed to nurse in attendance. The placenta delivered intact with 3VC followed by Pitocin IV. EBL= 250 mls. The cervix and vagina were inspected for lacs and none were noted. The infant is a viable male, Apgars 8 and 8 and weight 299- g in stable condition. Ms. Ty is in stable condition with good hemostasis. Cord gas: pH 7.08, pCO2 79, pO2 18, HCO3 22, O2 saturation 21, base excess -.6.5. Cesario Choi MD R3 Oct 22, 2017 22:15
[2017-10-23] VITALS (7 sets, daily range): BP systolic 124–158; BP diastolic 69–94; PULSE 78–103; RESP 18–20; TEMP 97.9–99.9; O2SAT 97–100
[2017-10-23] MEDS: IBUPROFEN 800 MG TAB PO PRN ×2 (07:56→15:58)
--- NOTE | 2017-10-23 08:29 | HHI.OB ---
Subjective Remarks 27 year old G3, now P3, post- day # 1 after induced vaginal delivery. Indication for induction was oligohydramnios. Method of induction was amniotomy and Pitocin. The delivery was vacuum assisted with one pop-off. Indication for vacuum assistance was increasing decelerations during pushing. There was no lacerations from the delivery. EBL was 250 mls. This morning, mom is resting in bed, in no distress. She is experiencing some pelvic pain that is well controlled with medication. She is experiencing lochia that is somewhat less than a regular menstrual period. control is undecided at this point, will continue to discuss. She is not having chest pain, shortness of breath, or calf tenderness/swelling. She is ambulating. She has an appetite. She is attempting to breast feed. (Cesario Choi MD R3) Objective Vitals/I&O Vital Signs Date Time Temp Pulse Resp B/P (MAP) Pulse Ox O2 Delivery O2 Flow Rate FiO2 10/23/17 07:55 87 20 154/90 (111) 97 10/23/17 07:55 97.9 10/23/17 00:18 99.9 103 20 124/69 (87) 10/22/17 23:16 112 108/66 (80) 10/22/17 23:01 106 10/22/17 23:01 118/77 (91) 10/22/17 23:00 18 10/22/17 22:46 108 10/22/17 22:46 100/83 (89) 10/22/17 22:31 105 10/22/17 22:31 129/64 (85) 10/22/17 22:20 18 10/22/17 22:16 110 114/45 (68) 10/22/17 22:15 98.9 10/22/17 22:15 18 10/22/17 22:01 111 10/22/17 22:01 120/78 (92) 10/22/17 22:00 20 10/22/17 21:46 108 10/22/17 21:46 115/57 (76) 10/22/17 21:32 99/58 (72) 10/22/17 21:16 124/60 (81) 10/22/17 21:03 115 124/52 (76) 4/9/18 20:46 99 130/69 (89) 10/22/17 20:35 20 10/22/17 20:31 105/58 (74) 10/22/17 20:31 99 10/22/17 20:20 103 10/22/17 20:16 97 122/77 (92) 10/22/17 20:10 102 10/22/17 20:04 18 10/22/17 20:01 102 127/71 (89) 10/22/17 19:55 106 10/22/17 19:46 118/79 (92) 10/22/17 19:40 104 10/22/17 19:31 118/67 (84) 10/22/17 19:30 98.4 18 10/22/17 19:25 114 10/22/17 19:16 125/77 (93) 10/22/17 19:14 18 10/22/17 19:13 18 10/22/17 19:11 101 10/22/17 19:11 132/83 (99) 10/22/17 19:10 99 10/22/17 19:06 134/82 (99) 10/22/17 19:01 134/87 (103) 10/22/17 19:00 18 10/22/17 18:56 122/97 (105) 10/22/17 18:56 92 10/22/17 18:51 145/67 (93) 10/22/17 18:00 86 139/98 (112) 10/22/17 17:36 92 118/56 (76) 10/22/17 17:01 89 144/74 (97) 10/22/17 16:39 85 143/88 (106) 10/22/17 16:15 97.9 17 10/22/17 16:01 93 128/81 (97) 10/22/17 15:31 95 131/96 (108) 10/22/17 15:01 100 132/79 (96) 10/22/17 14:31 100 141/88 (105) 10/22/17 14:01 91 133/71 (91) 10/22/17 13:31 94 142/98 (113) 10/22/17 13:29 98.2 10/22/17 09:13 88 144/98 (113) 10/22/17 08:56 99.2 10/22/17 08:55 18 10/22/17 08:51 92 153/103 (120) Objective Remarks GENERAL: Well-nourished, well-developed patient. CARDIOVASCULAR: Regular rate and rhythm without murmurs, gallops, or rubs. RESPIRATORY: Breath sounds equal bilaterally. No accessory muscle use. ABDOMEN/GI: Abdomen soft, non-tender. Fundus: Firm, non-tender at umbilicus. GENITOURINARY: Moderate lochia EXTREMITIES: No cyanosis or edema, non-tender, without signs of DVT. Medications and IVs Current Medications Medications (Trade) Dose Ordered Sig/Larissa Route Start Time Stop Time Status Last Admin (Zofran Inj) 4 mg Q6H PRN IV PUSH 10/22/17 08:45 (Ferrous Sulfate) 325 mg TIDPC PO 10/22/17 13:30 10/22/17 13:22 Miscellaneous Information No systemic narcotics to be given except... UNSCH PRN .XX 10/22/17 19:45 10/23/17 19:44 Miscellaneous Information DO NOT ADMINISTER ANY ANTICOAGUL... UNSCH PRN .XX 10/22/17 19:45 10/23/17 19:44 (NS Flush) 2 ml BID IV FLUSH 10/22/17 22:00 (NS Flush) 2 ml UNSCH PRN IV FLUSH 10/22/17 22:00 (Tylenol) 650 mg Q4H PRN PO 10/22/17 22:00 (Motrin) 800 mg Q8H PRN PO 10/22/17 22:00 10/23/17 07:56 (Percocet 5-325 Mg) 1 tab Q4H PRN PO 10/22/17 22:00 (Percocet 5-325 Mg) 2 tab Q4H PRN PO 10/22/17 22:00 (Americaine 20% Top Spr) 1 spray Q4H PRN TOPICAL 10/22/17 22:00 (Tucks Pads) 1 applic QID PRN TOPICAL 10/22/17 22:00 (Tessa-Colace) 2 tab Q12H PRN PO 10/22/17 22:00 (Ambien) 5 mg HS PRN PO 10/22/17 22:00 (Mag-Al Plus Susp Liq) 15 ml Q8H PRN PO 10/22/17 22:00 (Zofran Odt) 4 mg Q6H PRN PO 10/22/17 22:00 (Cesario Choi MD R3) Assessment/Plan Assessment and Plan 27 year old post day #1 after induced vaginal delivery. - Ibuprofen and Percocet for pain management. - Monitor lochia. - Encourage ambulation. - Continue discussion on control. - Encourage exclusive . Utilize consultants as needed. - Recommend pelvic rest. - Follow up in clinic within 4 weeks for follow up. - Anticipate discharge tomorrow if no complications. - Continue ferrous sulfate for iron-deficiency anemia. Will discuss with Dr. Brandt Discharge Planning Likely tomorrow if no complications. (Cesario Choi MD R3) Attending Attestation Patient seen and examined. Case reviewed and discussed with Dr Derrell Choi. Will cont to monitor BP, advised pt in S&S of concern. Agree with plan of care as discussed with me and documented in the resident note. (Kadie Brandt MD) Cesario Choi MD R3 Oct 23, 2017 08:29 Kadie Brandt MD Oct 23, 2017 17:04
[2017-10-23] MEDS ORDERED: MULTIVIT/MIN/PREN/FOL AC/IRON PRENATAL TAB PO SCH (09:00)
[2017-10-23] MEDS: FERROUS SULFATE 325 MG (65 MG ELEMENTAL IRON) TAB PO SCH ×3 (10:20→18:59)
[2017-10-23] MEDS: oxyCODONE/ACETAMINOPHEN 5 MG/325 MG TAB PO PRN (18:58)
[2017-10-24] MEDS: IBUPROFEN 800 MG TAB PO PRN ×2 (01:36→09:39)
[2017-10-24] MEDS: oxyCODONE/ACETAMINOPHEN 5 MG/325 MG TAB PO PRN ×2 (01:36→15:39)
[2017-10-24 08:15] VITALS: BP 129/82; PULSE 75; RESP 16; TEMP 98.1
--- NOTE | 2017-10-24 08:29 | HHI.OB ---
Subjective Remarks 27 year old G3, now P3, post- day # 2 after induced vaginal delivery. Indication for induction was oligohydramnios. Method of induction was amniotomy and Pitocin. The delivery was vacuum assisted with one pop-off. Indication for vacuum assistance was increasing decelerations during pushing. There was no lacerations from the delivery and no other complications. EBL was 250 mls. This morning, mom is resting in bed, in no distress. She rates her pain level a 1/10 this morning. It was higher over night but relieved with Percocet and Ibuprofen. She is experiencing lochia that is the amount of a regular menstrual period. She is considering Nexplanon for control. She is not having chest pain, shortness of breath, or calf tenderness/swelling. She is ambulating. She has an appetite. She wants to breast feed, currently pumping breast milk while her baby is in the NICU. Yesterday her blood pressures were 140's-150's/80's-90's. This morning her BP is 129/82. She does not have headaches, blurry vision, visual changes, epigastric pain, new onset edema. She otherwise feels fine. She is urinating normally and has had a bowel movement. She is ambulating normally and not having any calf tenderness or swelling. No chest pain or shortness of breath. Objective Vitals/I&O Vital Signs Date Time Temp Pulse Resp B/P (MAP) Pulse Ox O2 Delivery O2 Flow Rate FiO2 10/23/17 20:00 98.2 78 20 146/94 (111) 100 10/23/17 17:00 80 146/92 (110) 10/23/17 16:00 98.1 85 18 158/91 (113) 10/23/17 11:18 20 10/23/17 11:17 90 144/86 (105) 99 Objective Remarks GENERAL: Resting in bed, no distress CARDIOVASCULAR: Regular rate and rhythm without murmurs, gallops, or rubs. RESPIRATORY: Breath sounds equal bilaterally. No accessory muscle use. ABDOMEN/GI: Abdomen soft, non-tender. Fundus: Firm, non-tender at umbilicus. GENITOURINARY: Moderate lochia EXTREMITIES: No cyanosis or edema, non-tender, without signs of DVT. Medications and IVs Current Medications Medications (Trade) Dose Ordered Sig/Larissa Route Start Time Stop Time Status Last Admin (Zofran Inj) 4 mg Q6H PRN IV PUSH 10/22/17 08:45 (Ferrous Sulfate) 325 mg TIDPC PO 10/22/17 13:30 10/23/17 18:59 (NS Flush) 2 ml BID IV FLUSH 10/22/17 22:00 (NS Flush) 2 ml UNSCH PRN IV FLUSH 10/22/17 22:00 (Tylenol) 650 mg Q4H PRN PO 10/22/17 22:00 (Motrin) 800 mg Q8H PRN PO 10/22/17 22:00 10/24/17 01:36 (Percocet 5-325 Mg) 1 tab Q4H PRN PO 10/22/17 22:00 10/24/17 01:36 (Percocet 5-325 Mg) 2 tab Q4H PRN PO 10/22/17 22:00 (Americaine 20% Top Spr) 1 spray Q4H PRN TOPICAL 10/22/17 22:00 (Tucks Pads) 1 applic QID PRN TOPICAL 10/22/17 22:00 (Tessa-Colace) 2 tab Q12H PRN PO 10/22/17 22:00 10/23/17 13:28 (Ambien) 5 mg HS PRN PO 10/22/17 22:00 (Mag-Al Plus Susp Liq) 15 ml Q8H PRN PO 10/22/17 22:00 (Zofran Odt) 4 mg Q6H PRN PO 10/22/17 22:00 Assessment/Plan Assessment and Plan 27 year old post day #2 after induced vaginal delivery. Elevated blood pressures yesterday. No history of hypertension during the . Blood pressure this morning improved to 129/82. - Continue to monitor blood pressures today. If well controlled, will likely discharge. If continuing to be elevated, continue to monitor for signs of preeclampsia. - Ibuprofen and Percocet for pain management. - Monitor lochia. - Encourage ambulation. - Continue discussion on control, considering Nexplanon. - Encourage . Utilize consultants as needed. - Recommend pelvic rest. - Follow up in clinic with me. - Continue ferrous sulfate for iron-deficiency anemia. Discussed with Dr. Haddox. Discharge Planning Likely today if blood pressure remains well controlled. Cesario Choi MD R3 Oct 24, 2017 08:29
[2017-10-24] MEDS ORDERED: IBUP1TAB7 PO (08:31)
[2017-10-24] MEDS ORDERED: PERI PO (08:31)
--- NOTE | 2017-10-24 08:32 | HHI.DCPOC ---
Discharge Care Plan Diagnosis: (1) (vaginal after ) (2) care following vaginal delivery (3) Iron deficiency anemia Goals to Promote Your Health * To prevent worsening of your condition and complications * To maintain your health at the optimal level Directions to Meet Your Goals Take your medications as prescribed Follow your dietary instruction Follow activity as directed Keep your appointments as scheduled Take your immunizations and boosters as scheduled If your symptoms worsen call your PCP, if no PCP go to Urgent Care Center or Emergency Room Smoking is Dangerous to Your Health. Avoid second hand smoke Call the 24-hour hour crisis hotline for domestic abuse at Cesario Choi MD R3 Oct 24, 2017 08:32
[2017-10-24] MEDS: FERROUS SULFATE 325 MG (65 MG ELEMENTAL IRON) TAB PO SCH ×2 (09:39→13:30)
[2017-10-24 11:00] VITALS: BP 130/83; PULSE 87
== END 2017-10-24 15:50 | disposition home or self-care (01) | DRG 774 ==
LOC: HPND 08:05 → H2EA 08:33 → H1EA 10-23 00:17
PROVIDERS: ADMIT Obstetrics & Gynecology; ATTEND Obstetrics & Gynecology
PROC: 10D07Z6 Extraction of Products of Conception, Vacuum, Via Natural or Artificial Opening (ICD-10-PCS; principal; 2017-10-22)
PROC: 10907ZC Drainage of Amniotic Fluid, Therapeutic from Products of Conception, Via Natural or Artificial Opening (ICD-10-PCS; 2017-10-22)
PROC: 3E033VJ Introduction of Other Hormone into Peripheral Vein, Percutaneous Approach (ICD-10-PCS; 2017-10-22)
PROC: 10H07YZ Insertion of Other Device into Products of Conception, Via Natural or Artificial Opening (ICD-10-PCS; 2017-10-22)
DX: O98.82 Other maternal infectious and parasitic diseases complicating childbirth (principal); O41.03X0 Oligohydramnios, third trimester, not applicable or unspecified; Z37.0 Single live birth; Z3A.39 39 weeks gestation of pregnancy; O99.824 Streptococcus B carrier state complicating childbirth; O99.02 Anemia complicating childbirth; D50.9 Iron deficiency anemia, unspecified; B37.3 Candidiasis of vulva and vagina; O34.219 Maternal care for unspecified type scar from previous cesarean delivery; O69.81X0 Labor and delivery complicated by cord around neck, without compression, not applicable or unspecified; O69.89X0 Labor and delivery complicated by other cord complications, not applicable or unspecified; R03.0 Elevated blood-pressure reading, without diagnosis of hypertension
CPT/HCPCS: 76816; 80307; 81001; 82805; 85025; 87086; G0481; J2540; J2590; J3010; J7120